=== PATIENT | female | born 1970 | race American Indian/Alaskan Native ===

== ENCOUNTER 2016-02-24 21:00 | Emergency (ER) | payer BC, OTHER ==
[2016-02-24 22:38] LABS: Basophils % (Auto) 0.4 % (0.0-1.8); Eosinophils % (Auto) 0.7 % (0.0-4.3); Hematocrit 35.6 % (30.3-42.9); Hemoglobin 11.4 gm/dl (10.1-14.3); Mean Corpuscular HGB Conc 32 % (30-34); Mean Corpuscular Hemoglobin 29 pg (28-32); Mean Corpuscular Volume 91 fl (79-97); Platelet Count 309 K/mm3 (140-440); Red Blood Count 3.91 M/mm3 (3.65-5.03); Red Cell Distribution Width 15.6 % (13.2-15.2); White Blood Count 6.4 K/mm3 (4.5-11.0)
[2016-02-24 22:58] LABS: Alanine Aminotransferase 11 units/L (7-56); Alkaline Phosphatase 75 units/L (35-129); Bilirubin,Total 0.3 mg/dL (0.1-1.2); Blood Urea Nitrogen 7 mg/dL (7-17); Carbon Dioxide 25 mmol/L (22-30); Chloride 101.8 mmol/L (98-107); Glucose 103 mg/dL (65-100); Lipase 24 units/L (13-60); Potassium 3.5 mmol/L (3.6-5.0); Sodium 139 mmol/L (137-145)
[2016-02-24 22:59] LABS: Anion Gap 16 mmol/L
[2016-02-24 23:20] LABS: Bacteria,Urine 1+ /HPF (Negative); Bilirubin,Urine NEG (Negative); Blood,Urine NEG (Negative); Ketones,Urine NEG (Negative); Leukocyte Esterase,Urine TR (Negative); Mucus,Urine FEW /HPF; Nitrite,Urine NEG (Negative); Protein,Urine <15 mg/dL mg/dL (Negative); Urobilinogen,Urine < 2.0 mg/dL (<2.0); WBC,Urine < 1.0 /HPF (0.0-6.0)
[2016-02-25 08:09] VITALS: BP 119/75
[2016-02-25] MEDS ORDERED: TORADOL IM ONE (08:22)
[2016-02-25] MEDS ORDERED: MORPHINE ONE (08:46)
--- NOTE | 2016-02-25 08:51 | Emergency Department Report ---
HPI - General Chief Complaint: Abdominal Pain Time Seen by Provider: 02/25/16 07:43 - HPI HPI: The patient's 45-year-old female who presents for evaluation of abdominal pain and jaw pain. The patient reports abdominal pain for the past one day, rub or quadrant in location, moderate to severe, sharp in quality, and constant since onset. She has secondary complaint of left jaw pain, tightness like in quality , mild in severity, starting at 7 PM yesterday after finding her blood pressure to be elevated. She states that her jaw pain has been resolved for hours, and she believes that it was secondary to her elevated blood pressure. The patient denies fever, chest pain, dyspnea, neck pain, cough, hemoptysis, syncope, diarrhea, blood in the stool, dark tarry stool, dysuria, hematuria, flank pain. ED Past Medical Hx - Past Medical History Hx Kidney Stones: Yes Additional medical history: Hypothyroid - Surgical History Hx Breast Surgery: Yes Additional Surgical History: bilat breast reduction surgery, splenectomy - Social History Smoking Status: Never Smoker Substance Use Type: None - Medications Home Medications: Home Medications Medication Instructions Recorded Confirmed Last Taken Type HYDROcodone/APAP 7.5-325 [[place] 1 each PO Q8HR PRN #10 tablet 02/25/16 Unknown Rx 7.5-325 mg TAB] ED Review of Systems ROS: Stated complaint: HIGH BP Other details as noted in HPI Constitutional: denies: fever HEENT: reports jaw pain denies: throat or neck pain Respiratory: denies: cough, shortness of breath Cardiovascular: denies: chest pain Endocrine: denies unexplained weight loss or gain Gastrointestinal: reports abdominal pain, nausea Genitourinary: denies: dysuria Musculoskeletal: denies: leg swelling Skin: denies: rash Neurological: denies: headache Hematological/Lymphatic: denies: easy bleeding or easy bruising Psych: denies sadness or hopelessness Physical Exam - Physical Exam Vital Signs: Vital Signs 02/24/16 02/25/16 02/25/16 21:24 02:29 08:05 Temperature 98.9 F 98.0 F 97.7 F Pulse Rate 83 60 64 Respiratory 16 20 16 Rate Blood Pressure 127/86 Blood Pressure 123/83 119/75 [Right] O2 Sat by Pulse 99 100 97 Oximetry Physical Exam: General: well-nourished, well-developed, no acute distress Head: Normocephalic, atraumatic Eyes: normal sclera ENT: Mucous membranes are pink and moist Neck: trachea midline, neck supple, No neck stiffness, no cervical adenopathy Respiratory: Breath sounds equal bilaterally, no wheezing, rales, or rhonchi Cardio: S1 and S2 present, no murmurs, rubs, gallops, capillary refill is brisk Abdomen: Normoactive bowel sounds, soft abdomen, right upper quadrant tenderness to palpation present, no rigidity, no guarding or rebound tenderness Musc: No pitting edema Skin: No rash Neuro: Alert oriented 3, normal cognition, CN II through XII intact, no facial drooping, normal speech, no drift, no sensation or motor deficit in the arms or legs, reflexes are 2+ and symmetric on DTR testing, no obvious gross coordination deficit with finger to nose testing, Romberg negative, patient able to ablate without abnormal gait, no neuro deficits on examination Psych: Normal affect ED Course Vital Signs 02/24/16 02/25/16 02/25/16 21:24 02:29 08:05 Temperature 98.9 F 98.0 F 97.7 F Pulse Rate 83 60 64 Respiratory 16 20 16 Rate Blood Pressure 127/86 Blood Pressure 123/83 119/75 [Right] O2 Sat by Pulse 99 100 97 Oximetry ED Medical Decision Making - Lab Data Result diagrams: 02/24/16 22:07 02/24/16 22:07 - Medical Decision Making The patient was seen and examined by myself. The patient is placed on a cafeteria monitor and continuous pulse ox. On initial evaluation, the patient was found to be in no distress. Evaluation orders are placed. The patient is given an IM dose of morphine for her pain. Lab results were non-concerning including WBC, hemoglobin, hematocrit, electrolytes, renal function, LFTs, lipase, urinalysis, and neg preg test. The patient was reevaluated and reported that her pain was markedly improved and her jaw tingling/tightness remain resolved throughout ED course. The patient is stable for discharge with outpatient follow-up. The patient is given follow-up and return instructions. The patient expressed understanding and agreed with the plan. The patient is discharged in stable condition. Critical care attestation.: If time is entered above; I have spent that time in minutes in the direct care of this critically ill patient, excluding procedure time. ED Disposition Clinical Impression: Acute abdominal pain in left upper quadrant Disposition: DISCHARGED TO HOME OR SELFCARE Is pt being admited?: No Does the pt Need Aspirin: No Condition: Stable Instructions: Abdominal Pain (ED) Referrals: PRIMARY CARE, [Primary Care Provider] - 3-5 Days Time of Disposition: 08:19
[2016-02-25] MEDS ORDERED: MORPHINE IM ONE (08:57)
== END 2016-02-25 08:59 | disposition home or self-care (01) ==
LOC: ED 21:00
DX: R10.12 Left upper quadrant pain (principal); R10.9 Unspecified abdominal pain; E03.9 Hypothyroidism, unspecified
CPT/HCPCS: 36415; 80053; 81001; 81025; 83690; 84443; 85025; 93005; 93010; 96372; 99284; J1885; J2270